=== PATIENT | male | born 1995 | race Caucasian/White ===

== ENCOUNTER 2017-02-11 15:10 | Emergency (ER) | payer SELFPAY ==
[~2017-02-11] VITALS: Ht 180.3 cm; Wt 86.2 kg
[~2017-02-11 15:10] MED LIST: HYDR-1231 PO; IBP800T PO; METH4TAB PO; MULT-974 PO; SERT50TA PO; TRAZ-144 PO
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
[2017-02-11] MEDS ORDERED: HYDR-3812 PO (17:09)
[2017-02-11] MEDS ORDERED: HYDROcodone/APAP 5 MG/325 MG (LORTAB) TAB PO STA (17:29)
[2017-02-11 17:47] VITALS: BP 121/78
== END 2017-02-11 17:47 | disposition home or self-care (01) ==
LOC: EDUNIT# 15:10 → ER 15:13
DX: S62.307A Unspecified fracture of fifth metacarpal bone, left hand, initial encounter for closed fracture (principal); G43.909 Migraine, unspecified, not intractable, without status migrainosus; F41.9 Anxiety disorder, unspecified; F32.9 Major depressive disorder, single episode, unspecified; F17.210 Nicotine dependence, cigarettes, uncomplicated; W22.01XA Walked into wall, initial encounter
CPT/HCPCS: 29125; 73130

== ENCOUNTER 2017-07-04 08:43 | Emergency (ER) | payer SELFPAY ==
[~2017-07-04] VITALS: Ht 182.9 cm; Wt 77.1 kg
[~2017-07-04 08:43] MED LIST changes: +ACHD5005 PO
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
[2017-07-04] MEDS ORDERED: ONDANSETRON 4 MG (ZOFRAN) ORAL DISSOLVE TAB PO ONE (10:15)
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
[2017-07-04] MEDS ORDERED: AMOX-358 PO (11:26)
[2017-07-04 11:30] VITALS: BP 178/94
== END 2017-07-04 11:30 | disposition home or self-care (01) ==
LOC: EDUNIT# 08:43 → ER 08:45
DX: T79.8XXA Other early complications of trauma, initial encounter (principal); S61.211A Laceration without foreign body of left index finger without damage to nail, initial encounter; G43.909 Migraine, unspecified, not intractable, without status migrainosus; F41.9 Anxiety disorder, unspecified; F32.9 Major depressive disorder, single episode, unspecified; F17.210 Nicotine dependence, cigarettes, uncomplicated; W26.0XXA Contact with knife, initial encounter

== ENCOUNTER 2018-09-24 03:44 | Emergency (ER) | payer SELFPAY ==
[~2018-09-24] VITALS: Ht 180.3 cm; Wt 77.1 kg
[~2018-09-24 03:44] MED LIST changes: +AMOX-358 PO
[2018-09-24] MEDS ORDERED: NS IV 1000 ML 1,000 ML IV ONE (04:17)
[2018-09-24 04:39] LABS: BASOPHILS % (AUTO) 0 % (0-10); EOSINOPHILS # (AUTO) 0.2 10^3/uL (0.0-0.3); EOSINOPHILS % (AUTO) 2 % (0-10); HEMATOCRIT 49 % (40-54); HEMOGLOBIN 17.4 G/DL (13.3-17.7); LYMPHOCYTES # (AUTO) 2.6 X 10^3 (1.0-4.0); LYMPHOCYTES % (AUTO) 27 % (12-44); MEAN CORPUSCULAR HEMOGLOBIN 32 PG (25-34); MEAN CORPUSCULAR HGB CONC 35 G/DL (32-36); MEAN CORPUSCULAR VOLUME 90 FL (80-99); MEAN PLATELET VOLUME 11.7 FL (7.4-10.4); MONOCYTES % (AUTO) 11 % (0-12); NEUTROPHILS # (AUTO) 5.6 X 10^3 (1.8-7.8); NEUTROPHILS % (AUTO) 60 % (42-75); PLATELET COUNT 241 10^3/uL (130-400); RED CELL DISTRIBUTION WIDTH 12.6 % (10.0-14.5); WHITE BLOOD COUNT 9.4 10^3/uL (4.3-11.0)
[2018-09-24 04:43] LABS: BILIRUBIN,URINE NEGATIVE (NEGATIVE); CLARITY,URINE CLEAR; COLOR,URINE YELLOW; GLUCOSE, URINE (UA) NEGATIVE (NEGATIVE); KETONES,URINE NEGATIVE (NEGATIVE); LEUKOCYTE ESTERASE ,URINE NEGATIVE (NEGATIVE); NITRITE,URINE NEGATIVE (NEGATIVE); PH,URINE 8 (5-9); PROTEIN,URINE NEGATIVE (NEGATIVE); UROBILINOGEN,URINE NORMAL (NORMAL)
[2018-09-24 04:53] LABS: BACTERIA,URINE NEGATIVE /HPF; SQUAMOUS EPITHELIAL CELL,UR 0-2 /HPF
[2018-09-24 05:03] LABS: ALANINE AMINOTRANSFERASE 36 U/L (0-55); ALBUMIN 4.9 GM/DL (3.2-4.5); ALKALINE PHOSPHATASE 86 U/L (40-136); BILIRUBIN,TOTAL 0.5 MG/DL (0.1-1.0); BUN/CREATININE RATIO 13; CALCIUM 11.1 MG/DL (8.5-10.1); CARBON DIOXIDE 23 MMOL/L (21-32); CHLORIDE 105 MMOL/L (98-107); CREATININE SERUM 0.98 MG/DL (0.60-1.30); GFR ESTIMATED > 60; GLUCOSE 104 MG/DL (70-105); SALICYLATE < 5.0 MG/DL (5.0-20.0); SODIUM 141 MMOL/L (135-145); TOTAL PROTEIN 7.7 GM/DL (6.4-8.2)
[2018-09-24 05:04] LABS: ACETAMINOPHEN < 10 UG/ML (10-30)
[2018-09-24 05:06] LABS: BENZODIAZEPINES SCREEN URINE NEGATIVE (NEGATIVE); COCAINE SCREEN URINE NEGATIVE (NEGATIVE)
[2018-09-24 05:07] LABS: AMPHETAMINE SCREEN, URINE POSITIVE (NEGATIVE); BARBITURATE SCREEN URINE NEGATIVE (NEGATIVE); CANNABINOID SCREEN, URINE POSITIVE (NEGATIVE); METHADONE STAT NEGATIVE (NEGATIVE); METHAMPHETAMINE SCREEN URINE S POSITIVE (NEGATIVE); OPIATE SCREEN URINE NEGATIVE (NEGATIVE); OXYCODONE STAT NEGATIVE (NEGATIVE); PROPOXYPHENE STAT NEGATIVE (NEGATIVE); TRICYCLIC ANTIDEPRESSANTS SCRE NEGATIVE (NEGATIVE)
--- NOTE | 2018-09-24 05:19 | ED Cardiac General ---
History of Present Illness General Chief Complaint: Substance Abuse Stated Complaint: TIGHTNESS IN CHEST, STOMACH CRAMPING Nursing Triage Note: PT STATES THAT HE USED IV METH EARLIER THIS MORNING AROUND 0130, PRESENTS TO THE ED D/T INCREASING CHEST PAIN AND PRESSURE WELL ABDOMINAL PAIN. DENIES SUICIDAL IDEATION. Source: patient Exam Limitations: no limitations History of Present Illness Date Seen by Provider: Sep 24, 2018 Time Seen by Provider: 04:32 Initial Comments Here with report of chest pressure and abdominal discomfort after using IV methamphetamine earlier. He used 3 doses yesterday and 1 early this morning. He states the people around him were getting high that he was not. He wanted to make sure that he was okay. He was clean for quite some time and started using about a month ago again due to stressors in his life. Denies nausea or vomiting. Denies breathing problems. Timing/Duration: 1-3 hours, changing over time Severity: moderate Location: central, other (tightness) Prior CP/Workup: no prior cardiac workup Modifying Factors: improves with rest NTG SL TERRITORY SALES REPRESENTATIVE: No ASA po TERRITORY SALES REPRESENTATIVE: No Associated Systoms: Chest Pain; No Cough, No Fever/Chills, No Nausea/Vomiting, No Shortness of Air, No Weakness Allergies and Home Medications Allergies Coded Allergies: No Known Drug Allergies (Unverified , 03/12/13) Home Medications Amoxicillin/Potassium Clav 1 Each Tablet, 1 EACH PO BID Prescribed by: DAMON DANGELO on 07/04/17 1126 Patient Home Medication List Home Medication List Reviewed: Yes Review of Systems Review of Systems Constitutional: see HPI; No chills, No fever EENTM: No Symptoms Reported Respiratory: No Symptoms Reported Cardiovascular: See HPI; Denies Edema; Palpitations Gastrointestinal: Abdominal Pain (central and is resolved); Denies Diarrhea, Denies Nausea, Denies Vomiting Genitourinary: No Symptoms Reported Musculoskeletal: no symptoms reported Skin: no symptoms reported Psychiatric/Neurological: Anxiety; Denies Weakness All Other Systems Reviewed Negative Unless Noted: Yes Past Dvvnyyc-Iyyvuc-Cziatn Hx Past Med/Social Hx: Reviewed Nursing Past Med/Soc Hx Patient Social History Alcohol Use: Denies Use Number of Drinks Today: GG Alcohol Beverage of Choice: Whiskey Recreational Drug Use: Yes Drug of Choice: METH Smoking Status: Current Everyday Smoker Type Used: Cigarettes Recent Foreign Travel: No Contact w/Someone Who Travel: No Recent Infectious Disease Expo: No Recent Hopitalizations: No Immunizations Up To Date Tetanus Booster (TDap): Less than 5yrs PED Vaccines UTD: Yes Seasonal Allergies Seasonal Allergies: No Past Medical History Surgeries: No Respiratory: No Cardiac: No Neurological: Yes Headaches /Migraines Sexually Transmitted Disease: No Genitourinary: No Gastrointestinal: No Musculoskeletal: No Endocrine: No HEENT: No Cancer: No Psychosocial: Yes Anxiety, Depression Integumentary: No Blood Disorders: No Adverse Reaction/Blood Tranf: No Family Medical History Reviewed Nursing Family Hx No Pertinent Family Hx, Psychiatric Problems Physical Exam Vital Signs Vital Signs - First Documented 09/24/18 04:05 Temp 98.9 Pulse 112 Resp 20 B/P (MAP) 138/95 (109) Pulse Ox 100 O2 Delivery Room Air Capillary Refill : Less Than 3 Seconds Height, Weight, BMI Height: 5'11.00" Weight: 170lbs. 0oz. 77.402133sx; 25.10 BMI Method:Stated General Appearance: No Apparent Distress, WD/WN HEENT: PERRL/EOMI, Pharynx Normal Neck: Non Tender, Supple Respiratory: Lungs Clear, Normal Breath Sounds Cardiovascular: No Murmur, Tachycardia Gastrointestinal: Non Tender, Soft Extremity: Normal Range of Motion, Non Tender Neurologic/Psychiatric: Alert, Oriented x3 Skin: Normal Color, Warm/Dry Progress/Results/Core Measures Results/Orders Lab Results Laboratory Tests Test 09/24/18 04:26 09/24/18 04:35 Range/Units White Blood Count 9.4 4.3-11.0 10^3/uL Red Blood Count 5.49 4.35-5.85 10^6/uL Hemoglobin 17.4 13.3-17.7 G/DL Hematocrit 49 40-54 % Mean Corpuscular Volume 90 80-99 FL Mean Corpuscular Hemoglobin 32 25-34 PG Mean Corpuscular Hemoglobin Concent 35 32-36 G/DL Red Cell Distribution Width 12.6 10.0-14.5 % Platelet Count 241 130-400 10^3/uL Mean Platelet Volume 11.7 H 7.4-10.4 FL Neutrophils (%) (Auto) 60 42-75 % Lymphocytes (%) (Auto) 27 12-44 % Monocytes (%) (Auto) 11 0-12 % Eosinophils (%) (Auto) 2 0-10 % Basophils (%) (Auto) 0 0-10 % Neutrophils # (Auto) 5.6 1.8-7.8 X 10^3 Lymphocytes # (Auto) 2.6 1.0-4.0 X 10^3 Monocytes # (Auto) 1.0 0.0-1.0 X 10^3 Eosinophils # (Auto) 0.2 0.0-0.3 10^3/uL Basophils # (Auto) 0.0 0.0-0.1 10^3/uL Sodium Level 141 135-145 MMOL/L Potassium Level 4.0 3.6-5.0 MMOL/L Chloride Level 105 98-107 MMOL/L Carbon Dioxide Level 23 21-32 MMOL/L Anion Gap 13 5-14 MMOL/L Blood Urea Nitrogen 13 7-18 MG/DL Creatinine 0.98 0.60-1.30 MG/DL Estimat Glomerular Filtration Rate > 60 BUN/Creatinine Ratio 13 Glucose Level 104 70-105 MG/DL Calcium Level 11.1 H 8.5-10.1 MG/DL Corrected Calcium 8.5-10.1 MG/DL Total Bilirubin 0.5 0.1-1.0 MG/DL Aspartate Amino Transf (AST/SGOT) 25 5-34 U/L Alanine Aminotransferase (ALT/SGPT) 36 0-55 U/L Alkaline Phosphatase 86 40-136 U/L Troponin I < 0.028 <0.028 NG/ML C-Reactive Protein High Sensitivity 0.08 0.00-0.50 MG/DL Total Protein 7.7 6.4-8.2 GM/DL Albumin 4.9 H 3.2-4.5 GM/DL Salicylates Level < 5.0 L 5.0-20.0 MG/DL Acetaminophen Level < 10 L 10-30 UG/ML Serum Alcohol < 10 <10 MG/DL Urine Color YELLOW Urine Clarity CLEAR Urine pH 8 5-9 Urine Specific Hepler 1.010 L 1.016-1.022 Urine Protein NEGATIVE NEGATIVE Urine Glucose (UA) NEGATIVE NEGATIVE Urine Ketones NEGATIVE NEGATIVE Urine Nitrite NEGATIVE NEGATIVE Urine Bilirubin NEGATIVE NEGATIVE Urine Urobilinogen NORMAL NORMAL MG/DL Urine Leukocyte Esterase NEGATIVE NEGATIVE Urine RBC (Auto) NEGATIVE NEGATIVE Urine RBC NONE /HPF Urine WBC NONE /HPF Urine Squamous Epithelial Cells 0-2 /HPF Urine Crystals NONE /LPF Urine Bacteria NEGATIVE /HPF Urine Casts NONE /LPF Urine Mucus SMALL H /LPF Urine Culture Indicated NO Urine Opiates Screen NEGATIVE NEGATIVE Urine Oxycodone Screen NEGATIVE NEGATIVE Urine Methadone Screen NEGATIVE NEGATIVE Urine Propoxyphene Screen NEGATIVE NEGATIVE Urine Barbiturates Screen NEGATIVE NEGATIVE Ur Tricyclic Antidepressants Screen NEGATIVE NEGATIVE Urine Phencyclidine Screen NEGATIVE NEGATIVE Urine Amphetamines Screen POSITIVE H NEGATIVE Urine Methamphetamines Screen POSITIVE H NEGATIVE Urine Benzodiazepines Screen NEGATIVE NEGATIVE Urine Cocaine Screen NEGATIVE NEGATIVE Urine Cannabinoids Screen POSITIVE H NEGATIVE My Orders Orders - ABDOUL EASTMAN MD Acetaminophen (09/24/18 04:17) Alcohol (09/24/18 04:17) Cbc With Automated Diff (09/24/18 04:17) Comprehensive Metabolic Panel (09/24/18 04:17) Hs C Reactive Protein (09/24/18 04:17) Drug Screen Stat (Urine) (09/24/18 04:17) Salicylate (09/24/18 04:17) Troponin I (09/24/18 04:17) Ua Culture If Indicated (09/24/18 04:17) Ed Iv/Invasive Line Start (09/24/18 04:17) Ns Iv 1000 Ml (Sodium Chloride 0.9%) (09/24/18 04:17) Ekg Tracing (09/24/18 04:17) Medications Given in ED Current Medications Medications Dose Ordered Sig/[place] Route Start Time Stop Time Status Last Admin Dose Admin Sodium Chloride 1,000 ml @ 0 mls/hr Q0M ONCE IV 09/24/18 04:17 09/24/18 04:19 DC 09/24/18 04:30 1,000 MLS/HR Vital Signs/I&O 09/24/18 04:05 Temp 98.9 Pulse 112 Resp 20 B/P (MAP) 138/95 (109) Pulse Ox 100 O2 Delivery Room Air Blood Pressure Mean: 109 Progress Progress Note : Progress Note Seen and evaluated. IV, labs, normal saline 1 L bolus, UA and EKG ordered. I did spend a fair amount of time talking with the patient about community resources for alcohol and drug treatment including medical and [place]-based organizations. Patient was very appreciative of the conversation. Information packets given for both. He is feeling better now. Monitor patient. 0538: No significant acute 90s. Patient states he feels much better. Discharged home with return precautions. Patient verbalize understanding instructions and agreement with plan. Initial ECG Impression Date: Sep 24, 2018 Initial ECG Impression Time: 04:15 Initial ECG Rate: 78 Initial ECG Rhythm: Normal Sinus Comment Sinus rhythm with normal axis. No evidence of ST elevation ID. Similar to previous of 04/11/13. Interpreted by me. Departure Impression Primary Impression: Methamphetamine abuse Additional Impression: Chest pain Qualified Codes: R07.9 - Chest pain, unspecified Disposition: 01 HOME, SELF-CARE Condition: Improved Departure-Patient Inst. Decision time for Depature: 05:39 Referrals: NO,LOCAL PHYSICIAN (PCP/Family) Primary Care Physician Patient Instructions: ALCOHOL AND SUBSTANCE ABUSE, Chest Pain (DC), Methamphetamine Add. Discharge Instructions: All discharge instructions reviewed with patient and/or family. Voiced understanding. Urination and has not used illicit drugs. Follow-up in one or several other programs that we discussed regarding help for drug abuse. Drink plenty of fluids. Get some rest. Follow-up with your Dr. in a few days for recheck. Return for worse pain, fever, vomiting, weakness, breathing problems or other concerns as needed. ABDOUL EASTMAN MD Sep 24, 2018 05:19
[2018-09-24 06:05] VITALS: BP 150/90
== END 2018-09-24 06:05 | disposition home or self-care (01) ==
LOC: EDUNIT# 03:44 → ER 03:47
DX: F15.10 Other stimulant abuse, uncomplicated (principal); R07.89 Other chest pain; G43.909 Migraine, unspecified, not intractable, without status migrainosus; F41.9 Anxiety disorder, unspecified; F32.9 Major depressive disorder, single episode, unspecified; F17.210 Nicotine dependence, cigarettes, uncomplicated
CPT/HCPCS: 36415; 80053; 80306; 80320; 80329; 81000; 84484; 85025; 86141; 93005